=== PATIENT | female | born 1980 | race Caucasian/White ===

== ENCOUNTER 2017-04-18 12:28 | Outpatient (CLI) | payer BC ==
--- NOTE | 2017-04-18 14:15 | ULT ---
RENAL ULTRASOUND: INDICATION: History of urinary tract infection. FINDINGS: The right kidney measures 11.3 x 3.6 x 3.5 cm. The left kidney measured 11 x 5.3 x 4.6 cm. There i s a small cyst within the inferior pole of the left kidney measuring 1 cm. The prevoid bladder volume was 35.7 cc. IMPRESSION: 1. Small left renal cyst. 2. No hydronephrosis or solid renal lesion demonstrated. POS: [facility]
== END 2017-04-18 12:29 | disposition home or self-care (01) ==
LOC: SCSULT 12:28
PROVIDERS: ATTEND Urology
DX: N39.0 Urinary tract infection, site not specified (principal); N28.1 Cyst of kidney, acquired
CPT/HCPCS: 36415; 76770; 80048; 81001; 87086